=== PATIENT | male | born 1995 ===

== ENCOUNTER 2022-10-06 02:18 | Emergency (ER) | payer OTHER ==
[2022-10-06] MEDS ORDERED: HYDROCODONE/APAP 10/325 TAB ONE (02:59)
[2022-10-06] MEDS ORDERED: CYCLOBENZAPRINE 10 MG TAB ONE (02:59)
[2022-10-06] MEDS ORDERED: IBUPROFEN 400 MG TAB ONE (03:00)
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
[2022-10-06 05:23] VITALS: O2SAT 98
[2022-10-06 05:25] VITALS: BP 110/65; TEMP 98
--- NOTE | 2022-10-06 11:04 | RAD REPORT ---
EXAM DESCRIPTION: Knee Left 3 View CLINICAL HISTORY: Pain and swelling COMPARISON: None. FINDINGS: 3 views of the left knee. No acute fracture or dislocation. Normal osseous mineralization. No joint effusion. Chronic appearing ossific fragments at the tibial tuberosity. IMPRESSION: 1. No acute fracture or dislocation. Electronically signed by: Natanael Gonzalez 10/06/2022 4:06 AM CDT Due to temporary technical issues with the PACS/Fluency reporting system, reports are being signed by the in house radiologists without review as a courtesy to insure prompt reporting. The interpreting radiologist is fully responsible for the content of the report.
== END 2022-10-06 05:18 | disposition home or self-care (01) ==
LOC: ER 02:18
DX: S83.92XA Sprain of unspecified site of left knee, initial encounter (principal); F17.210 Nicotine dependence, cigarettes, uncomplicated